=== PATIENT | male | born 1975 | race Two or more races ===

== ENCOUNTER 2023-08-24 13:29 | Inpatient (IN) | payer OTHER ==
[2023-08-24 14:16] VITALS: BMI 29.2
[2023-08-24] MEDS ORDERED: NICOTINE POLACRILEX 2 MG LOZENGE BC PRN (14:37)
[2023-08-24] MEDS ORDERED: MAG HYDROX/AL HYDROX/SIMETH 30 ML UNIT-DOSE CUP PO PRN (14:37)
[2023-08-24] MEDS ORDERED: POLYETHYLENE GLYCOL (HEALTHYLAX) 3350 17 GM PACKET PO PRN (14:37)
[2023-08-24] MEDS ORDERED: BISMUTH SUBSALICYLATE 262 MG/15 ML BTL PO PRN (14:37)
[2023-08-24] MEDS ORDERED: NALOXONE HCL (KLOXXADO) 8 MG SPRAY NS PRN (14:37)
[2023-08-24] MEDS ORDERED: IBUPROFEN 400 MG TABLET (FP) PO PRN (14:37)
[2023-08-24] MEDS ORDERED: ACETAMINOPHEN 325 MG TABLET (FP) PO PRN (14:37)
[2023-08-24] MEDS ORDERED: NICOTINE POLACRILEX 2 MG GUM BUC PRN (14:37)
[2023-08-24] MEDS ORDERED: LOPERAMIDE HCL 2 MG CAPSULE PO PRN (14:37)
[2023-08-24] MEDS ORDERED: DICYCLOMINE HCL 10 MG CAPSULE PO PRN (14:37)
[2023-08-24] MEDS ORDERED: BENZONATATE 200 MG CAPSULE PO PRN (14:37)
[2023-08-24] MEDS ORDERED: IBUPROFEN 600 MG TABLET (FP) PO PRN (14:37)
[2023-08-24] MEDS ORDERED: guaiFENesin 600 MG TABLET.ER (FP) PO PRN (14:37)
[2023-08-24] MEDS ORDERED: P-EPHED 60MG/TRIPROLIDI 2.5MG TABLET PO PRN (14:37)
[2023-08-24] MEDS ORDERED: MAGNESIUM HYDROX 2400MG/30ML ORAL SUSPENSION 30 ML CUP PO PRN (14:37)
[2023-08-24] MEDS ORDERED: BENZOCAINE/MENTHOL (CHLORASEPTIC ) LOZENGE MM PRN (14:37)
[2023-08-24] MEDS ORDERED: NALOXONE HCL 0.4 MG/ML VIAL IM PRN (14:37)
[2023-08-24] MEDS: THIAMINE HCL 100 MG TABLET (FP) PO SCH (22:25)
[2023-08-24] MEDS: hydrOXYzine PAMOATE 25 MG CAPSULE (FP) PO PRN (22:26)
[2023-08-24] MEDS: MELATONIN 5 MG TABLETS PO SCH (22:47)
[2023-08-25] MEDS: PRENATAL VITAMINS W/ FOLIC ACID TABLET (FP) PO SCH (10:40)
[2023-08-25 12:51] LABS: POTASSIUM 4.5 mmol/L (3.5-5.1)
[2023-08-25 12:59] LABS: BLOOD UREA NITROGEN 18.6 mg/dL (7-18)
[2023-08-25 13:01] LABS: CREATININE 0.8 mg/dL (0.55-1.3)
[2023-08-25 13:02] LABS: TOT PROT 6.2 g/dl (6.4-8.2)
[2023-08-25] MEDS: ONDANSETRON *ODT* 4 MG TABLET SL PRN (13:02)
[2023-08-25] MEDS: METHOCARBAMOL 500 MG TABLET PO PRN (13:02)
[2023-08-25 13:06] LABS: HEMATOCRIT 40.1 % (35.4-49); HEMOGLOBIN 13.3 GM/dL (11.7-16.9); MCHC 33.1 g/dl (32.0-35.9); MEAN CELL VOLUME 87.8 fl (80-96); PLATELET COUNT 182 10^3/uL (134-434); RBC 4.57 M/mm3 (4.00-5.60); RDW 14.7 % (11.9-15.9); WHITE BLOOD COUNT 8.7 K/mm3 (4.0-10.0)
[2023-08-25 13:11] LABS: BILIRUBIN,TOTAL 0.2 mg/dL (0.2-1)
[2023-08-25] MEDS: methaDONE HCL 10 MG TABLET (FOR DETOX USE ONLY) PO ONE (13:55)
[2023-08-26] MEDS: diazePAM 5 MG TABLET PO PRN (12:58)
[2023-08-27] MEDS: amLODIPine BESYLATE 10 MG TABLET (FP) PO SCH (09:59)
[2023-08-27] MEDS: methaDONE HCL 10 MG TABLET (FOR DETOX USE ONLY) PO ONE (09:59)
[2023-08-27] MEDS: cloNIDine HCL 0.1 MG TABLET PO PRN (16:33)
[2023-08-28 09:36] VITALS: TEMP 98.2
[2023-08-28 13:21] VITALS: BP 121/68; PULSE 71; RESP 20
[2023-08-29] MEDS ORDERED: methaDONE HCL 10 MG TABLET (FOR DETOX USE ONLY) PO ONE (10:00)
== END 2023-08-28 16:06 | disposition home or self-care (01) | DRG 773 ==
LOC: YASAS 13:29 → Y6N 15:04
PROVIDERS: ADMIT Allergy & Immunology; ATTEND Surgery
PROC: HZ2ZZZZ Detoxification Services for Substance Abuse Treatment (ICD-10-PCS; principal; 2023-08-24)
DX: F11.23 Opioid dependence with withdrawal (principal); F14.20 Cocaine dependence, uncomplicated; F17.210 Nicotine dependence, cigarettes, uncomplicated; I10 Essential (primary) hypertension
CPT/HCPCS: 36415; 80053; 80305; 85027; 86780; 87635; 87811; 93005; 93010; Q0162